=== PATIENT | female | born 1945 | race Caucasian/White ===

== ENCOUNTER 2021-08-19 12:53 | Outpatient (CLI) | payer MEDICARE | END 2021-08-19 12:54 | disposition home or self-care (01) | LOC: CSHMAMMO 12:53 | PROVIDERS: ATTEND Family Medicine | DX: Z12.31 Encounter for screening mammogram for malignant neoplasm of breast (principal); Z98.890 Other specified postprocedural states | CPT/HCPCS: 77063; 77067 ==

== ENCOUNTER 2022-09-20 10:28 | Outpatient (CLI) | payer MEDICARE, OTHER | END 2022-09-20 10:29 | disposition home or self-care (01) | LOC: CSHMAMMO 10:28 | PROVIDERS: ATTEND Family Medicine | DX: Z12.31 Encounter for screening mammogram for malignant neoplasm of breast (principal); Z98.82 Breast implant status | CPT/HCPCS: 77063; 77067 ==

== ENCOUNTER 2023-06-06 11:52 | Observation (INO) | payer MEDICARE, OTHER ==
[2023-06-06] MEDS ORDERED: methylPREDNISolone Sod Succ/PF 125 MG/2 ML VIAL ONE (14:09)
[2023-06-06] MEDS ORDERED: diphenhydrAMINE 50 MG/ML VIAL ONE (14:09)
[2023-06-06] MEDS ORDERED: Famotidine/PF 20 mg/2ml Vial ONE (14:10)
[2023-06-06 14:18] LABS: Bilirubin Neg (Negative); Blood, Urine 50 (Negative); Clarity Clear (Clear); Glucose, Urine (Dipstick) Normal (Negative); Ketone, Urine Negative (Negative); Leukocyte Negative (Negative); Nitrite Negative (Negative); Protein, Urine (Dipstick) Negative (Neg-Trace); Specific Gravity, Urine 1.015 (1.005-1.030); Urobilinogen Normal mg/dL (Less than 2)
[2023-06-06 14:18] LABS: #Basophils 0.1 10x3/uL (0.0-0.2); #Eosinphils 0.2 10x3/uL (0.0-0.5); #Monocytes 0.5 10x3/uL (0.0-1.1); #Neutrophils 3.4 10x3/uL (1.5-8.4); %Basophils 1.2 % (0.0-2.0); %Eosinophils 4.3 % (0.0-6.0); %Lymphocytes 24.6 % (18.0-47.0); %Monocytes 8.7 % (0.0-10.0); %Neutrophils 60.8 % (40.0-75.0); Hematocrit 36.3 % (34.9-44.5); Hemoglobin 12.5 g/dL (12.0-15.5); Mean Corpuscular HGB CONC 34.4 g/dL (32.0-36.0); Mean Corpuscular Hemoglobin 32.3 pg (27.0-33.0); Mean Corpuscular Volume 93.8 fl (81.6-98.3); Mean Platelet Volume 9.9 fl (7.4-10.4); Platelet Count 272 10x3/uL (150-450); RBC Distribution Width 12.5 % (11.5-14.5); Red Blood Cell (RBC) Count 3.87 10x6/uL (3.90-5.03); White Blood Cell (WBC) Count 5.6 10x3/uL (3.5-10.5)
[2023-06-06 14:33] LABS: ALT (SGPT) 21 U/L (8-55); AST (SGOT) 27 U/L (5-34); Albumin 4.1 g/dL (3.4-4.8); Alkaline Phosphatase 44 U/L (40-110); Anion Gap 16 mmol/L (10-20); BUN (Urea Nitrogen) 10 mg/dL (9.8-20.1); Bilirubin, Total 0.2 mg/dL (0.2-1.2); Calc. Creatinine Clearance 0 mL/min (70-130); Carbon Dioxide 19 mmol/L (23-31); Chloride 103 mmol/L (98-107); Estimated GFR 46; Globulin 2.2 g/dL (2.4-3.5); Glucose 102 mg/dL (83-110); Protein, Total 6.3 g/dL (5.8-8.1); Sodium 134 mmol/L (136-145)
[2023-06-06 14:39] LABS: Troponin I Less than 0.010 ng/mL (< 0.028)
[2023-06-06 15:25] LABS: Bacteria/HPF None Seen HPF (None Seen); CAUTI Indications for Culture Alt mental st,lethar; Renal Epithelial 0-3 HPF (None Seen); Squamous Epithelial 0-3 HPF (0-3); WBC/HPF 0-3 HPF (0-3)
[2023-06-06 15:26] LABS: Urine Culture Reflex No No
[2023-06-06 16:33] LABS: Acetaminophen Less than 10 mcg/mL (10.0-30.0); Alcohol Less than 10.0 mg/dL (Less than 10); Salicylate 22.6 mg/dL (15.0-30.0)
[2023-06-06 16:58] LABS: Amphetamine Not Detected (NotDetected); Barbiturates Screen Not Detected (NotDetected); Benzodiazepine Screen Not Detected (NotDetected); Cocaine Metabolite Screen Not Detected (NotDetected); Methadone Not Detected (NotDetected); Methamphetamine Not Detected (NotDetected); Opiate Screen Not Detected (NotDetected); Oxycodone Screen Not Detected (NotDetected); Phencyclidine (PCP) Not Detected (NotDetected); THC/Cannabinoid Screen Not Detected (NotDetected); Tricyclic Screen Not Detected (NotDetected)
[2023-06-06] MEDS ORDERED: Acetaminophen 500 MG TAB ONE (17:11)
[2023-06-06] MEDS ORDERED: Senokot S 8.6-50 MG TAB PO PRN (18:02)
[2023-06-06] MEDS ORDERED: Ondansetron ODT 4 MG TAB PO PRN (18:02)
[2023-06-06] MEDS ORDERED: Loperamide HCl 2 MG CAP PO PRN ×2 (18:02)
[2023-06-06] MEDS ORDERED: Ondansetron PF 4 MG/2 ML Vial IVP PRN (18:02)
[2023-06-06] MEDS ORDERED: Artificial Tear Sol 15 ML BOT EA EYE PRN (18:02)
[2023-06-06] MEDS ORDERED: Sodium Chloride 0.65% Nasal 44 ML BOT EA NARE PRN (18:02)
[2023-06-06] MEDS ORDERED: Acetaminophen 650 MG Suppository PR PRN (18:02)
[2023-06-06] MEDS ORDERED: Bisacodyl 5 MG TAB PO PRN (18:02)
[2023-06-06] MEDS ORDERED: Moisturizing Cream (Eucerin) 113 GM JAR TOP PRN (18:02)
[2023-06-06] MEDS ORDERED: Ipratropium/Albuterol 3 ML NEB NEB PRN (18:04)
[2023-06-06] MEDS ORDERED: Lactated Ringer's 1,000 ML IV SCH (18:15)
[2023-06-06 18:25] LABS: Free T4 (Free Thyroxine) 1.04 ng/dL (0.70-1.48); Thyroid Stimulating Hormone 0.5353 uIU/mL (0.35-4.94)
[2023-06-06 18:28] LABS: Syphilis Antibody Nonreactive (Nonreactive); Syphilis Antibody Index 0.05 S/CO (<1.00 Non-Reactive)
[2023-06-06] MEDS: hydrOXYzine 25 MG TAB PO PRN (20:23)
[2023-06-06] MEDS ORDERED: traZODone HCl 50 MG TAB PO SCH (21:00)
[2023-06-06 22:07] VITALS: BMI 19.1
[2023-06-07] MEDS: Acetaminophen 325 MG TAB PO PRN ×2 (01:34→09:25)
[2023-06-07] MEDS: hydrOXYzine 25 MG TAB PO PRN (01:34)
[2023-06-07 04:20] LABS: Anion Gap 14 mmol/L (10-20); BUN (Urea Nitrogen) 11 mg/dL (9.8-20.1); Calc. Creatinine Clearance 35 mL/min (70-130); Calcium 9.3 mg/dL (7.8-10.44); Carbon Dioxide 22 mmol/L (23-31); Chloride 105 mmol/L (98-107); Estimated GFR 54; Glucose 144 mg/dL (83-110); Potassium 3.7 mmol/L (3.5-5.1); Sodium 137 mmol/L (136-145)
[2023-06-07 04:22] LABS: #Monocytes 0.1 10x3/uL (0.0-1.1); #Neutrophils 2.7 10x3/uL (1.5-8.4); %Basophils 0.6 % (0.0-2.0); %Lymphocytes 17.5 % (18.0-47.0); %Monocytes 1.5 % (0.0-10.0); %Neutrophils 80.1 % (40.0-75.0); Hematocrit 33.8 % (34.9-44.5); Hemoglobin 11.5 g/dL (12.0-15.5); Mean Corpuscular Hemoglobin 31.3 pg (27.0-33.0); Mean Corpuscular Volume 92.1 fl (81.6-98.3); Mean Platelet Volume 10.1 fl (7.4-10.4); Platelet Count 262 10x3/uL (150-450); RBC Distribution Width 12.3 % (11.5-14.5); Red Blood Cell (RBC) Count 3.67 10x6/uL (3.90-5.03); White Blood Cell (WBC) Count 3.3 10x3/uL (3.5-10.5)
[2023-06-07] MEDS ORDERED: Ketorolac Tromethamine 30 MG/ML VIAL IVP SCH (04:30)
[2023-06-07] MEDS ORDERED: Levothyroxine Sodium 50 MCG TAB PO SCH (06:00)
[2023-06-07] MEDS ORDERED: Magnevist 469MG/ML 20 ML VIAL ONE (08:33)
[2023-06-07] MEDS ORDERED: Thiamine 100 MG TAB PO SCH (09:00)
[2023-06-07] MEDS ORDERED: FLU VACC QS2023(65UP)/MF59C/PF 60 MCG/0.5 ML SYRINGE IM ONE (09:00)
[2023-06-07] MEDS ORDERED: Folic Acid 1 MG TAB PO SCH (09:00)
[2023-06-07 09:21] VITALS: BP 135/87; TEMP 97.7
[2023-06-07 12:38] LABS: ANA Symphony (Qualitative) Negative (Negative); ANA Symphony (Quantitative) 0.2 Ratio (< 0.7 Negative); dsDNA IgG Antibody 0.8 IU/mL (<10 Negative)
[2023-06-11 11:13] LABS: HIV-1 Quantitative, RNA PCR <20 copies/mL (.)
== END 2023-06-07 11:41 | disposition home or self-care (01) ==
LOC: CSHERS 11:52 → CSHTELE 18:30
PROVIDERS: ADMIT Family Medicine; ATTEND Family Medicine
DX: R21 Rash and other nonspecific skin eruption (principal); M81.0 Age-related osteoporosis without current pathological fracture; J45.909 Unspecified asthma, uncomplicated; E03.9 Hypothyroidism, unspecified; K21.9 Gastro-esophageal reflux disease without esophagitis; F32.A Depression, unspecified; R41.82 Altered mental status, unspecified; Z90.710 Acquired absence of both cervix and uterus; Z98.890 Other specified postprocedural states; Z91.018 Allergy to other foods; Z88.0 Allergy status to penicillin; Z88.2 Allergy status to sulfonamides; Z91.011 Allergy to milk products; Z79.82 Long term (current) use of aspirin; Z79.899 Other long term (current) drug therapy
CPT/HCPCS: 70450; 70553; 71045; 80048; 80306; 80307; 81001; 82140; 82533; 83605; 84439; 84481; 84484; 85025; 86038; 86140; 86225; 86780; 87040; 87536; 93005; 96361; 96372 ×2; 96374; 96375 ×2; 97116; 99285; G0378 ×3; 36415; 80053; 84443; A9579; J1200; J1650; J1885; J2930; J7120; S0028

== ENCOUNTER 2023-06-30 09:32 | Outpatient (CLI) | payer OTHER | END 2023-06-30 09:33 | disposition home or self-care (01) | LOC: CSHRAD 09:32 | PROVIDERS: ATTEND Student in an Organized Health Care Education/Training Program | DX: M25.50 Pain in unspecified joint (principal); Z01.89 Encounter for other specified special examinations; R53.83 Other fatigue; R73.09 Other abnormal glucose; R79.89 Other specified abnormal findings of blood chemistry; R79.9 Abnormal finding of blood chemistry, unspecified; E55.9 Vitamin D deficiency, unspecified; Z71.85 Encounter for immunization safety counseling; M19.042 Primary osteoarthritis, left hand; M19.041 Primary osteoarthritis, right hand; M11.242 Other chondrocalcinosis, left hand; M11.241 Other chondrocalcinosis, right hand | CPT/HCPCS: 71046 ==

== ENCOUNTER 2023-07-12 12:14 | Outpatient (CLI) | payer OTHER | END 2023-07-12 12:15 | disposition home or self-care (01) | LOC: CSHCP 12:14 | PROVIDERS: ATTEND Student in an Organized Health Care Education/Training Program | DX: R21 Rash and other nonspecific skin eruption (principal); M25.50 Pain in unspecified joint; Z01.89 Encounter for other specified special examinations; R53.83 Other fatigue; R73.09 Other abnormal glucose; R79.89 Other specified abnormal findings of blood chemistry; R79.9 Abnormal finding of blood chemistry, unspecified; E55.9 Vitamin D deficiency, unspecified; Z71.85 Encounter for immunization safety counseling; R13.19 Other dysphagia; M79.10 Myalgia, unspecified site; Z87.39 Personal history of other diseases of the musculoskeletal system and connective tissue; R49.9 Unspecified voice and resonance disorder; E03.9 Hypothyroidism, unspecified; H53.9 Unspecified visual disturbance; R94.2 Abnormal results of pulmonary function studies; R93.1 Abnormal findings on diagnostic imaging of heart and coronary circulation | CPT/HCPCS: 93306; 94060; 94726; 94729; 94760 ==

== ENCOUNTER 2023-10-11 10:58 | Outpatient (CLI) | payer OTHER | END 2023-10-11 10:59 | disposition home or self-care (01) | LOC: CSHMAMMO 10:58 | PROVIDERS: ATTEND Family Medicine | DX: Z12.31 Encounter for screening mammogram for malignant neoplasm of breast (principal); Z98.890 Other specified postprocedural states | CPT/HCPCS: 77063; 77067 ==

== ENCOUNTER 2024-04-12 12:44 | Outpatient (CLI) | payer OTHER | END 2024-04-12 12:45 | disposition home or self-care (01) | LOC: CSHMAMMO 12:44 | PROVIDERS: ATTEND Family Medicine | DX: M81.0 Age-related osteoporosis without current pathological fracture (principal); M85.89 Other specified disorders of bone density and structure, multiple sites | CPT/HCPCS: 77080 ==

== ENCOUNTER 2024-10-12 09:41 | Outpatient (CLI) | payer OTHER | END 2024-10-12 09:42 | disposition home or self-care (01) | LOC: CSHMAMMO 09:41 | PROVIDERS: ATTEND Family Medicine | DX: Z12.31 Encounter for screening mammogram for malignant neoplasm of breast (principal); Z80.3 Family history of malignant neoplasm of breast; Z98.890 Other specified postprocedural states | CPT/HCPCS: 77063; 77067 ==